=== PATIENT | female | born 1975 ===

== ENCOUNTER 2018-03-03 10:11 | Outpatient (REF) | payer BC, SELFPAY ==
[2018-03-03 20:34] LABS: HCT 38.2 % (36.0-46.0); HGB 13.1 g/dL (12.0-15.5); Mean Corp. HGB Concentration 34.3 g/dL (32.0-36.0); Mean Corpuscular Hemoglobin 32.9 pg (27.0-33.0); Mean Platelet Volume 12.1 fL (8.0-11.0); Platelet Count 207 x1000/uL (130-400); RBC 3.98 m/cumm (4.00-5.20); RBC Distribution Width 11.7 % (11.7-14.6); White Blood Cell Count 3.52 k/cumm (4.4-10.8)
[2018-03-03 20:59] LABS: Hemoglobin A1C 5.1 % (4.5-6.2)
[2018-03-03 21:07] LABS: BUN 9 mg/dL (7-18); Calcium 8.9 mg/dL (8.5-10.1); Chloride 104 mmol/L (98-107); Cholesterol 213 mg/dL (50-200); Glucose 93 mg/dL (70-100); HDL Cholesterol 47 mg/dL (40-60); LDL CHOLESTEROL 152 mg/dL (<100); Potassium 4.2 mmol/L (3.5-5.1); Sodium 139 mmol/L (136-145); TSH 2.24 uIU/mL (0.358-3.74); Triglyceride 96 mg/dL (30-150)
== END 2018-03-03 10:31 ==
LOC: NCHCN 10:11
PROVIDERS: PCP Nurse Practitioner Family; Visit Provider Nurse Practitioner Family
DX: R49.0 Dysphonia (principal); E66.3 Overweight; Z13.220 Encounter for screening for lipoid disorders; Z13.1 Encounter for screening for diabetes mellitus; Z13.29 Encounter for screening for other suspected endocrine disorder
CPT/HCPCS: 80048; 80061; 83721; 85027; 83036; 84443

== ENCOUNTER 2022-02-25 15:29 | Outpatient (REF) | payer OTHER, SELFPAY ==
--- NOTE | 2022-02-25 14:10 | PAPFT_PTH ---
PATIENT: Rose Lloyd LOC: [facility] U#:[id number] AGE/SX: 46/F ROOM: RE02/25/[address]: Roxy Wilson : 1975 BED: DIS: 02/25/2022 SPEC #: [id number] RECD: 02/26/22 12:48 STATUS: DEION RERayne #: [id number] KAYLYNN: 02/25/22 14:[address]: oRxy Wilson [facility] Cyt[facility] RECD BY: Jazmin Rob ENTERED: 02/26/22 12:48 SP TYPE: PAPFT OTHR DR: Penny Shane Tissues: 1 - CX/ENDOCX FOR PAP SMEARS Procedures: PAP THIN PREP/[facility] Screening HPV DNA PROBE Comments: [id number]
[2022-02-25 21:17] LABS: Abs Immature Grans 0.01 10^3/uL (0.0-0.06); Absolute Basophil Count 0.07 10^3/uL (0.0-0.2); Absolute Eosinophil Count 0.09 10^3/uL (0.0-0.7); Absolute Lymphocyte Count 0.99 10^3/uL (1.2-3.4); Absolute Monocyte Count 0.52 10^3/uL (0.1-0.8); Absolute Neutrophil Count 2.33 10^3/uL (1.2-6.7); Basophils % 1.7; Eosinophils % 2.2; HCT 35.7 % (36.0-46.0); HGB 11.6 g/dL (11.2-15.7); Immature Grans % 0.2; Lymphocytes % 24.7; MCH 30.4 pg (27.0-33.0); MCHC 32.5 % (32.0-36.0); MCV 94 fL (80-95); MPV 11.9 fL (8.0-11.0); Neutrophils % 58.2; Platelet Count 195 10^3/uL (130-400); RBC 3.81 10^6/uL (3.93-5.22); RDW 11.9 % (11.7-14.6); RDW-SD 40.9 fL; WBC 4.01 10^3/uL (4.4-10.8)
[2022-02-25 21:54] LABS: Anion Gap 8.6 mmol/L (3-11); BUN 12 mg/dL (7-18); CO2 25.4 mmol/L (21.0-32.0); CREATININE 0.8 mg/dL (0.55-1.02); Calcium 9.3 mg/dL (8.5-10.1); Chloride 103 mmol/L (98-107); Estimated GFR 92.54 (mL/min/1.73m2); Ferritin 29 ng/mL (8-252); Glucose 88 mg/dL (74-106); Potassium 3.7 mmol/L (3.5-5.1); Sodium 137 mmol/L (136-145)
== END 2022-02-25 15:30 | disposition home or self-care (01) ==
LOC: NCHCN 15:29
PROVIDERS: PCP Nurse Practitioner Family; Visit Provider Family Medicine
DX: N93.8 Other specified abnormal uterine and vaginal bleeding (principal); Z12.4 Encounter for screening for malignant neoplasm of cervix; Z11.51 Encounter for screening for human papillomavirus (HPV); Z00.00 Encounter for general adult medical examination without abnormal findings
CPT/HCPCS: 80048; 88142; 82728; 84443; 85025; 87624